=== PATIENT | female | born 1940 | race Caucasian/White ===

== ENCOUNTER 2022-12-01 07:50 | Emergency (ER) | payer MEDICARE, OTHER ==
[~2022-12-01] VITALS: Ht 165.1 cm; Wt 47.1 kg
[2022-12-01] VITALS (32 sets, daily range): BP systolic 100–154; BP diastolic 37–57
[2022-12-01] MEDS ORDERED: ATORVASTATIN CA10 MG PO (07:57)
[2022-12-01] MEDS ORDERED: MUPIROCIN2 % EX (07:57)
[2022-12-01] MEDS ORDERED: SERTRALINE50 MG PO (07:59)
[2022-12-01] MEDS ORDERED: VITAMIN D325 MCG PO (08:00)
[2022-12-01] MEDS ORDERED: KENALOG15 GM/TUBE EX (08:00)
[2022-12-01] MEDS ORDERED: CALCITONIN200 UNIT/1 (11:00)
== END 2022-12-01 15:00 | disposition home or self-care (01) ==
LOC: ED 07:50
DX: S32.010A Wedge compression fracture of first lumbar vertebra, initial encounter for closed fracture (principal); G30.9 Alzheimer's disease, unspecified; F02.80 Dementia in other diseases classified elsewhere, unspecified severity, without behavioral disturbance, psychotic disturbance, mood disturbance, and anxiety; F32.A Depression, unspecified; W19.XXXA Unspecified fall, initial encounter; Y92.099 Unspecified place in other non-institutional residence as the place of occurrence of the external cause